=== PATIENT | female | born 1995 | race Hispanic/Latino ===

== ENCOUNTER → 2022-01-19 09:25 | Outpatient (CLI) | payer OTHER, SELFPAY ==
[2022-01-19 10:55] LABS: Hemoglobin A1C% w Est Avg Glu 5.3 % (4.0-6.0)
[2022-01-19 11:15] LABS: Glucose 89 mg/dL (70-100)
[2022-01-19 11:29] LABS: Prolactin 10.1 ng/mL (3.0-18.6)
[2022-01-19 11:43] LABS: TSH w/ Reflex to FT4 3.89 uIU/mL (0.47-4.68)
[2022-01-19 11:46] LABS: Testosterone 63.9 ng/dL (5.71-77.0)
[2022-01-19 11:51] LABS: Follicle Stimulating Hormone 4.24 mIU/mL; Luteinizing Hormone 10.6 mIU/mL
== END ==
PROVIDERS: PCP Registered Nurse Diabetes Educator; Referring Provider Registered Nurse Diabetes Educator; Visit Provider Registered Nurse Diabetes Educator
DX: Z00.00 Encounter for general adult medical examination without abnormal findings (principal); N92.0 Excessive and frequent menstruation with regular cycle; N91.5 Oligomenorrhea, unspecified
CPT/HCPCS: 36415; 82627; 82947; 83001; 83002; 83036; 83498; 84146; 84403; 84443

== ENCOUNTER → 2022-02-09 08:10 | Outpatient (CLI) | payer OTHER, SELFPAY ==
--- NOTE | 2022-02-09 08:11 | DI.US.S_ITS ---
PROCEDURE: US PELVIC COMPLETE INDICATIONS: eval menorrhagia, oligomenorrhea TECHNIQUE: Real-time scanning was performed of the pelvic organs, with image documentation. Additional endovaginal scanning was necessary due to incomplete visualization of the adnexal and endometrial structures by transabdominal scanning. COMPARISON: None. FINDINGS: Uterus: Uterus is anteverted and normal in size at 8.9 x 5.0 x 4.3 cm. The myometrium is homogeneous. The endometrium measures 13.9 mm combined thickness. Questionable vascularity is visualized on a single view within the endometrial complex. Multiple nabothian cysts are visualized at the cervix. Ovaries: The right ovary measures 3.4 x 2.7 x 3.9 cm. The left ovary measures 3.3 x 3.2 x 2.3 cm. The ovaries have a normal sonographic appearance. Less than 12 follicles can be seen in each ovary. No adnexal masses are seen. Other: No pathologic free abdominal or pelvic fluid. IMPRESSION: 1. Questionable vascularity in the endometrial complex. Endometrial polyp cannot be excluded. If further characterization is warranted, repeat study during the proliferative phrase of the menstrual cycle or hysterosonogram could be used. We strive to produce accurate, complete, and clear reports of imaging services. To assist us in improving patient care, this report was composed using standard report templates and voice recognition software. Therefore, it may contain abnormal punctuation, insertions and/or omissions. Occasional wrong-word or sound-alike substitutions may occur. Though we review the report and make efforts to correct it, we do recommend that the report be read carefully in proper context to recognize any text inaccuracies. Dictated by: Elicia Porter M.D. on 02/09/2022 at 9:48 Approved by: Elicia Porter M.D. on 02/09/2022 at 9:53
== END ==
PROVIDERS: PCP Registered Nurse Diabetes Educator; Referring Provider Registered Nurse Diabetes Educator; Visit Provider Registered Nurse Diabetes Educator
DX: N91.5 Oligomenorrhea, unspecified (principal); N92.0 Excessive and frequent menstruation with regular cycle
CPT/HCPCS: 76830; 76856

== ENCOUNTER → 2022-03-29 16:59 | Outpatient (CLI) | payer OTHER, SELFPAY ==
--- NOTE | 2022-03-29 17:00 | DI.US.S_ITS ---
PROCEDURE: US PELVIC COMPLETE INDICATIONS: Possible endometrial abnormality on US 02/09/2022 TECHNIQUE: Real-time scanning was performed of the pelvic organs, with image documentation. Additional endovaginal scanning was necessary due to incomplete visualization of the adnexal and endometrial structures by transabdominal scanning. COMPARISON: [facility], US, US PELVIC COMPLETE, 02/09/2022, 9:31. FINDINGS: Uterus: Uterus is anteverted and normal in size at 7.9 x 4.6 x 3.7 cm. The myometrium is homogeneous. The endometrium measures 14 mm combined thickness. In this patient with this given history, scrutiny is given to an endometrial polyp. None can be seen. Incidental note is made of nabothian cysts. Ovaries: The right ovary measures 3.3 x 3.3 x 1.8 cm. The left ovary measures 4.6 x 3.2 x 2.8 cm. The ovaries have a normal sonographic appearance. No adnexal masses are seen. Other: A mild amount of free pelvic fluid is seen, which is considered to be within physiologic limits. IMPRESSION: The potential previously seen endometrial polyp is no longer seen. We strive to produce accurate, complete, and clear reports of imaging services. To assist us in improving patient care, this report was composed using standard report templates and voice recognition software. Therefore, it may contain abnormal punctuation, insertions and/or omissions. Occasional wrong-word or sound-alike substitutions may occur. Though we review the report and make efforts to correct it, we do recommend that the report be read carefully in proper context to recognize any text inaccuracies. Dictated by: Gil Donaldson M.D. on 03/29/2022 at 17:08 Approved by: Gil Donaldson M.D. on 03/29/2022 at 17:09
== END ==
PROVIDERS: PCP Registered Nurse Diabetes Educator; Referring Provider Obstetrics & Gynecology; Visit Provider Obstetrics & Gynecology
DX: N93.8 Other specified abnormal uterine and vaginal bleeding (principal)
CPT/HCPCS: 76830; 76856